=== PATIENT | male | born 1980 | race African-American/Black ===

== ENCOUNTER 2019-08-15 05:58 | Inpatient (IN) | payer MEDICARE, MEDICAID ==
[~2019-08-15] VITALS: Ht 188 cm; Wt 67.6 kg
[~2019-08-15 05:58] MED LIST: LAMI10SO PO; RALT400T PO; RANI150T2 PO; SULF1TAB24 PO; [UNRECOGNIZED DRUG - CODE] PO
--- NOTE | 2019-08-15 06:26 | PHYS DOC ---
Past Medical History Past Medical History: Anxiety, Asthma, Depression, GERD, HIV, Hypertension, Renal Disease, Other (CANDICE JALLOH DO) Past Surgical History: Cholecystectomy Additional Past Surgical Histo: GYNECOMASTIA SX (CANDICE JALLOH DO) Smoking: Cigarettes Alcohol Use: Rarely Drug Use: Other (CANDICE JALLOH DO) Adult General Chief Complaint Chief Complaint: SHORTNESS OF BREATH HPI HPI 39 year old male presents with history of shortness of breath which started this AM at 0400. Patient with history of ESRD on HD //Sat. Patient reports he last went to HD on Saturday and had appointment this AM at 0545. Patient reports his breathing became so difficulty that he ended up coming by EMS. Denies fever/chills. Denies trauma. EMS reported patient's O2 sat upon arrival was down to 90% on room air. Patient was placed on CPAP at 10 L which increased his O2 sat to 98%. Patient also received 1 inch of Nitropaste prior to arrival. (CANDICE JALLOH DO) Review of Systems Review of Systems Constitutional: Denies fever or chills Eyes: Denies redness or eye pain HENT: Denies nasal congestion or sore throat Respiratory: Reports shortness of breath Cardiovascular: Denies chest pain or palpitations GI: Denies abdominal pain, nausea, or vomiting : Denies dysuria or hematuria Musculoskeletal: Denies back pain or joint pain Integument: Denies rash or skin lesions Neurologic: Denies headache, focal weakness or sensory changes Complete systems were reviewed and found to be within normal limits, except as documented in this note. (CANDICE JALLOH DO) Current Medications Current Medications Current Medications Medications (Trade) Dose Ordered Sig/Kyleigh Start Time Stop Time Status Last Admin Dose Admin Albuterol Sulfate (Ventolin Neb Soln) 10 mg 1X ONCE 08/15/19 07:45 08/15/19 07:51 DC Ipratropium [place] (Atrovent) 1 mg 1X ONCE 08/15/19 07:45 08/15/19 07:51 DC Methylprednisolone Sodium Succinate (SOLU-Medrol 125MG VIAL) 125 mg 1X ONCE 08/15/19 07:45 08/15/19 07:51 DC 08/15/19 08:03 125 MG (CARMELINA DE LA PAZ DO) Allergies Allergies Allergies Coded Allergies Type Severity Reaction Last Updated Verified No Known Drug Allergies 09/29/13 No (CARMELINA DE LA PAZ ) Physical Exam Physical Exam Constitutional: Well developed, well nourished, non-toxic appearance HENT: Normocephalic, atraumatic, oropharynx moist Eyes: Conjunctiva normal, no discharge Neck: Normal range of motion, no tenderness, supple Cardiovascular: Heart rate normal, regular rhythm Lungs & Thorax: Bilateral breath equal, diminished at bases Abdomen: Soft, no tenderness Skin: Warm, dry, no erythema, no rash Extremities: No tenderness, ROM intact, no edema Neurologic: Alert and oriented X 3, no focal deficits noted Psychologic: Affect normal, judgement normal (CANDICE JALLOH DO) Current Patient Data Vital Signs Vital Signs Date Time Temp Pulse Resp B/P (MAP) Pulse Ox O2 Delivery O2 Flow Rate FiO2 08/15/19 06:30 96 22 171/113 (132) 95 BiPAP/CPAP 08/15/19 05:58 98.1 10.0 98.1 (CARMELINA DE LA PAZ ) Lab Values Laboratory Tests Test 08/15/19 06:18 08/15/19 06:20 White Blood Count 11.0 x10^3/uL (4.0-11.0) Red Blood Count 2.81 x10^6/uL (4.30-5.70) L Hemoglobin 8.4 g/dL (13.0-17.5) L Hematocrit 25.8 % (39.0-53.0) L Mean Corpuscular Volume 92 fL (79-100) Mean Corpuscular Hemoglobin 30 pg (25-35) Mean Corpuscular Hemoglobin Concent 33 g/dL (31-37) Red Cell Distribution Width 20.3 % (11.5-14.5) H Platelet Count 338 x10^3/uL (140-400) Neutrophils (%) (Auto) 71 % (31-73) Lymphocytes (%) (Auto) 14 % (24-48) L Monocytes (%) (Auto) 7 % (0-9) Eosinophils (%) (Auto) 8 % (0-3) H Basophils (%) (Auto) 1 % (0-3) Neutrophils # (Auto) 7.8 x10^3/uL (1.8-7.7) H Lymphocytes # (Auto) 1.5 x10^3/uL (1.0-4.8) Monocytes # (Auto) 0.8 x10^3/uL (0.0-1.1) Eosinophils # (Auto) 0.8 x10^3/uL (0.0-0.7) H Basophils # (Auto) 0.1 x10^3/uL (0.0-0.2) Platelet Estimate Pending Sodium Level 140 mmol/L (136-145) Potassium Level 4.7 mmol/L (3.5-5.1) Chloride Level 103 mmol/L (98-107) Carbon Dioxide Level 21 mmol/L (21-32) Anion Gap 16 (6-14) H Blood Urea Nitrogen 67 mg/dL (8-26) H Creatinine 15.7 mg/dL (0.7-1.3) H Estimated GFR (Cockcroft-Gault) 4.2 BUN/Creatinine Ratio 4 (6-20) L Glucose Level 90 mg/dL (70-99) Calcium Level 7.8 mg/dL (8.5-10.1) L Magnesium Level 2.2 mg/dL (1.8-2.4) Total Bilirubin 0.4 mg/dL (0.2-1.0) Aspartate Amino Transferase (AST) 21 U/L (15-37) Alanine Aminotransferase (ALT) 14 U/L (16-63) L Alkaline Phosphatase 70 U/L (46-116) Creatine Kinase 177 U/L (39-308) Creatine Kinase MB (Mass) 2.1 ng/mL (0.0-3.6) Creatine Kinase MB Relative Index 1.2 % (0-4) Troponin I Quantitative < 0.017 ng/mL (0.000-0.055) JE-Qaj-I-Type Natriuretic Peptide > 80450 pg/mL (0-124) H Total Protein 7.9 g/dL (6.4-8.2) Albumin 3.0 g/dL (3.4-5.0) L Albumin/Globulin Ratio 0.6 (1.0-1.7) L O2 Saturation 99 % (92-99) Arterial Blood pH 7.36 (7.35-7.45) Arterial Blood pCO2 at Patient Temp 36 mmHg (35-46) Arterial Blood pO2 at Patient Temp 254 mmHg (85-108) H Arterial Blood HCO3 20 mmol/L (21-28) L Arterial Blood Base Excess -5 mmol/L (-3-3) L Oxyhemoglobin 91.1 % Methemoglobin 6.7 % (0.0-1.9) *H Carbon Monoxide, Quantitative 1.3 % (0.0-1.9) FiO2 50 Laboratory Tests 08/15/19 06:18 Laboratory Tests 08/15/19 06:18 (CARMELINA DE LA PAZ DO) EKG EKG @0607 Sinus tachycardia at 101bpm, NO ST elevation, (CANDICE JALLOH DO) Radiology/Procedures Radiology/Procedures [] (CANDICE JALLOH DO) Course & Med Decision Making Course & Med Decision Making Pertinent Labs and Imaging studies reviewed. (See chart for details) Patient with past with a history of end-stage renal disease on hemodialysis presents with shortness of breath that started this morning. Patient's O2 sat down to 90% on room air which improved with CPAP utilization by EMS. Patient continued on BiPAP upon arrival to ED. Patient likely with increased fluid load with lack of dialysis. Chest x-ray pending. EKG stable. Labs obtained and pending. Sign out given to Dr. De La Paz for further evaluation and final disposition. Discussed current findings and plan with patient and family, who acknowledge understanding and agreement. (CANDICE JALLOH DO) Course & Med Decision Making Patient with acute respiratory failure with hypoxia secondary to end-stage renal disease with volume overload and missed dialysis. Patient will be admitted to the hospitalist service for inpatient dialysis. Dr. Jones carton forming machine tender for nephrology notified of consult. (CARMELINA DE LA PAZ DO) Dragon Disclaimer Dragon Disclaimer This electronic medical record was generated, in whole or in part, using a voice recognition dictation system. (CANDICE JALLOH DO) Departure Departure Impression: Primary Impression: Acute respiratory failure with hypoxia Additional Impressions: Volume overload state of heart End-stage renal disease needing dialysis Disposition: ADMITTED INPATIENT Condition: CRITICAL Referrals: PILAR RUSSO MD (PCP) Problem Qualifiers CANDICE JALLOH DO Aug 15, 2019 06:26 CARMELINA DE LA PAZ DO Aug 15, 2019 08:28
[2019-08-15 06:45] LABS: BASO # 0.1 x10^3/uL (0.0-0.2); BASO % 1 % (0-3); EOS # 0.8 x10^3/uL (0.0-0.7); EOS % 8 % (0-3); HEMATOCRIT 25.8 % (39.0-53.0); HEMOGLOBIN 8.4 g/dL (13.0-17.5); LYMPH # 1.5 x10^3/uL (1.0-4.8); LYMPH % 14 % (24-48); MEAN CORPUSCULAR HEMOGLOBIN 30 pg (25-35); MEAN CORPUSCULAR HGB CONC 33 g/dL (31-37); MEAN CORPUSCULAR VOLUME 92 fL (79-100); MONO # 0.8 x10^3/uL (0.0-1.1); MONO % 7 % (0-9); NEUT # 7.8 x10^3/uL (1.8-7.7); NEUT % 71 % (31-73); PLATELET COUNT 338 x10^3/uL (140-400); RED BLOOD COUNT 2.81 x10^6/uL (4.30-5.70); RED CELL DISTRIBUTION WIDTH 20.3 % (11.5-14.5)
[2019-08-15 06:48] LABS: CALCIUM 7.8 mg/dL (8.5-10.1); CREATININE 15.7 mg/dL (0.7-1.3); GFR 4.2; POTASSIUM 4.7 mmol/L (3.5-5.1)
[2019-08-15 06:56] LABS: ALBUMIN/GLOBULIN RATIO 0.6 (1.0-1.7); TOTAL BILIRUBIN 0.4 mg/dL (0.2-1.0); TOTAL PROTEIN 7.9 g/dL (6.4-8.2)
[2019-08-15 06:57] LABS: MAGNESIUM 2.2 mg/dL (1.8-2.4)
[2019-08-15 07:02] LABS: CREATINE KINASE 177 U/L (39-308)
--- NOTE | 2019-08-15 07:15 | RAD ---
PORTABLE CHEST 1V Clinical Indication: Dyspnea. Comparison: AP chest July 29, 2016 Findings: There is left chest hemodialysis catheter, tip at superior atriocaval junction. The cardiomediastinal silhouette is normal. There are bibasilar airspace opacities. Interstitial markings are upper limits of normal.. There is no pneumothorax. No significant pleural effusion is appreciated. No acute bone abnormality. IMPRESSION: Bibasilar airspace opacities may be atelectasis or edema or infiltrate. Electronically signed by: Montrell Patel MD (08/15/2019 7:12 AM) [facility]
[2019-08-15 07:31] LABS: BASE EXCESS COOX -5 mmol/L (-3-3); HCO3 COOX 20 mmol/L (21-28); OXYHEMOGLOBIN 91.1 %; PCO2 COOX 36 mmHg (35-46); PO2 COOX 254 mmHg (85-108); SAT O2 COOX 99 % (92-99)
[2019-08-15] MEDS ORDERED: IPRATROPIUM BROMIDE 0.5 MG/2.5 ML NEBU. NEB ONE (07:45)
[2019-08-15] MEDS ORDERED: ALBUTEROL SULFATE 2.5 MG/3 ML NEBU. CONT NEB ONE (07:45)
[2019-08-15] MEDS ORDERED: methylPREDNISolone SOD SUCC PF 125 MG/2 ML VIAL. IV ONE (07:45)
[2019-08-15 08:08] LABS: METHEMOGLOBIN 6.7 % (0.0-1.9)
--- NOTE | 2019-08-15 09:22 | PDOC1 ---
History and Physical Date of Admission Date of Admission DATE: 08/15/19 TIME: 09:21 Identification/Chief Complaint Chief Complaint Shortness of breath Source Source: Patient History of Present Illness History of Present Illness Mr. Bernardo is a 39-year-old M from the [facility] w/ PMHx Anxiety, Asthma, Depression, GERD, HIV, Hypertension, End Stage Renal Disease, gynecomastia who p/w shortness of breath which started this AM at 0400. Patient reports his breathing became so difficulty that he ended up coming by EMS. Denies fever/chills. Denies trauma. EMS reported patient's O2 sat upon arrival was down to 90% on room air. Patient was placed on CPAP at 10 L which increased his O2 sat to 98%. Patient also received 1 inch of Nitropaste prior to arrival due to elevated BP. He feels his asthma may be acting up due to the fact that his mom had cats in her house. He was on dialysis in the past and then his creatinine improved. He was able to stay off of dialysis for almost 5 years. About a year ago he had to restart dialysis after he had a pneumonia. He is known to have a history of HIV. He dialyzes at the [facility] in [facility]. He last went to HD on Saturday and had appointment this AM at 0545. Was supposed to have dialysis today at [facility], which was arranged by his caser. He thinks that has brought on his shortness of breath. CXR significant for fluid overload and notably his weight is approximately 6-7 kg above his estimated dry weight.He has had no recent sick contacts and tells me his most recent HIV viral load was undetectable and his CD4 count was greater than 400. He is, however, taking bactrim and azithromycin, notes he does not really know why, but he has been compliant with these and his anti-retrovirals. He notes his blood pressure has been elevated for months and that he has been losing weight so feels it is difficult to figure out his dry weight. BP 181/121.. Labs reveal BUN 67, Cr 15.7, Hb 8.4. His EKG showed sinus tachycardia. He was noted to be hypoxemic hypertensive and required BiPAP for maintaining his oxygenation. Emergent dialysis has been arranged for by nephrology, Dr. Jones. Past Medical History Cardiovascular: HTN Pulmonary: Asthma GI: No pertinent hx Heme/Onc: Anemia NOS Hepatobiliary: No pertinent hx Psych: Anxiety, Depression Rheumatologic: No pertinent hx Infectious disease: HIV ENT: No pertinent hx Renal/: Chronic renal failure Endocrine: No pertinent hx Dermatology: No pertinent hx Past Surgical History Past Surgical History: Cholecystectomy, Other (Gynecomastia reduction) Family History Family History: Hypertension Social History Smoke: <1 pack per day ALCOHOL: rare Drugs: None Current Problem List Problem List Problems Medical Problems: (1) Acute respiratory failure with hypoxia Status: Acute (2) End-stage renal disease needing dialysis Status: Acute (3) Shortness of breath Status: Acute (4) Volume overload state of heart Status: Acute Current Medications Current Medications Current Medications Methylprednisolone Sodium Succinate (SOLU-Medrol 125MG VIAL) 125 mg 1X ONCE IV Last administered on 08/15/19at 08:03; Start 08/15/19 at 07:45; Stop 08/15/19 at 07:51; Status DC Albuterol Sulfate (Ventolin Neb Soln) 10 mg 1X ONCE CONT NEB Last administered on 08/15/19at 08:23; Start 08/15/19 at 07:45; Stop 08/15/19 at 07:51; Status DC Ipratropium [place] (Atrovent) 1 mg 1X ONCE NEB Last administered on 08/15/19at 08:23; Start 08/15/19 at 07:45; Stop 08/15/19 at 07:51; Status DC Active Scripts Active Reported Ranitidine Hcl 150 Mg Tablet 150 Mg PO Isentress (Raltegravir Potassium) 400 Mg Tablet 400 Mg PO Zidovudine 100 Mg Capsule 100 Mg PO Bactrim Ds Tablet (Sulfamethoxazole/Trimethoprim) 1 Each Tablet 1 Each PO Epivir (Lamivudine) 10 Mg/1 Ml Solution 10 Mg PO Allergies Allergies: Coded Allergies: No Known Drug Allergies (Unverified , 09/29/13) ROS General: YES: Fatigue, Malaise; No: Chills, Night Sweats, Appetite, Other PSYCHOLOGICAL ROS: No: Anxiety, Behavioral Disorder, Concentration difficultie, Decreased libido, Depression, Disorientation, Hallucinations, Hostility, Irritablity, Memory difficulties, Mood Swings, Obsessive thoughts, Physical abuse, Sexual abuse, Sleep disturbances, Suicidal ideation, Other Eyes: No Blurry vision, No Decreased vision, No Double vision, No Dry eyes, No Excessive tearing, No Eye Pain, No Itchy Eyes, No Loss of vision, No Photophobia, No Scotomata, No Uses contacts, No Uses glasses, No Other HEENT: YES: Heacaches; No: Visual Changes, Hearing change, Nasal congestion, Nasal discharge, Oral lesions, Sinus pain, Sore Throat, Epistaxis, Sneezing, Snoring, Tinnitus, Vertigo, Vocal changes, Other ALLERGY AND IMMUNOLOGY: No: Hives, Insect Bite Sensitivity, Itchy/Watery Eyes, Nasal Congestion, Post Nasal Drip, Seasonal Allergies, Other Hematological and Lymphatic: No: Bleeding Problems, Blood Clots, Blood Transfusions, Brusing, Night Sweats, Pallor, Swollen Lymph Nodes, Other ENDOCRINE: No: Breast Changes, Galactorrhea, Hair Pattern Changes, Hot Flashes, Malaise/lethargy, Mood Swings, Palpitations, Polydipsia/polyuria, Skin Changes, Temperature Intolerance, Unexpected Weight Changes, Other Breast: No New/Changing Breast Lumps, No Nipple changes, No Nipple discharge, No Other Respiratory: YES: Cough, Shortness of breath, SOB with excertion, Wheezing; No: Hemoptysis, Orthopnea, Pleuritic Pain, Sputum Changes, Stridor, Tachypnea, Other Cardiovascular: No Chest Pain, No Palpitations, No Orthopnea, No Paroxysmal Noc. Dyspnea, No Edema, No Lt Headedness, No Other Gastrointestinal: Yes Nausea; No Vomiting, No Abdominal Pain, No Diarrhea, No Constipation, No Melena, No Hematochezia, No Other Genitourinary: No Dysuria, No Frequency, No Incontinence, No Hematuria, No Retention, No Discharge, No Urgency, No Pain, No Flank Pain, No Other, No , No , No , No , No , No , No Musculoskeletal: No Gait Disturbance, No Joint Pain, No Joint Stiffness, No Joint Swelling, No Muscle Pain, No Muscular Weakness, No Pain In:, No Swelling In:, No Other Neurological: No Behavorial Changes, No Bowel/Bladder ControlChng, No Confusion, No Dizziness, No Gait Disturbance, No Headaches, No Impaired Coord/balance, No Memory Loss, No Numbness/Tingling, No Seizures, No Speech P roblems, No Tremors, No Visual Changes, No Weakness, No Other Skin: No Dry Skin, No Eczema, No Hair Changes, No Lumps, No Mole Changes, No Mottling, No Nail Changes, No Pruritus, No Rash, No Skin Lesion Changes, No Other, No Acne Physical Exam General: Alert, Oriented X3, Cooperative, mild distress HEENT: Atraumatic, PERRLA, EOMI, Mucous membr. moist/pink Lungs: Other (Bilateral crackles and wheezes) Abdomen: Normal bowel sounds, Soft, No tenderness, No hepatosplenomegaly, No masses Rectal Exam: not examined Extremities: No clubbing, No cyanosis, No edema, Normal pulses, No tenderness/swelling Skin: No rashes, No breakdown, No significant lesion Neuro: Normal gait, Normal speech, Strength at 5/5 X4 ext, Normal tone, Sensation intact, Cranial nerves 3-12 NL, Reflexes 2+ Psych/Mental Status: Mental status NL, Mood NL Vitals Vitals Vital Signs Date Time Temp Pulse Resp B/P (MAP) Pulse Ox O2 Delivery O2 Flow Rate FiO2 08/15/19 09:00 104 19 171/115 (133) 90 08/15/19 08:30 Nasal Cannula 2.0 08/15/19 05:58 98.1 98.1 Labs Labs Laboratory Tests Test 08/15/19 06:18 08/15/19 06:20 White Blood Count 11.0 x10^3/uL (4.0-11.0) Red Blood Count 2.81 x10^6/uL (4.30-5.70) Hemoglobin 8.4 g/dL (13.0-17.5) Hematocrit 25.8 % (39.0-53.0) Mean Corpuscular Volume 92 fL (79-100) Mean Corpuscular Hemoglobin 30 pg (25-35) Mean Corpuscular Hemoglobin Concent 33 g/dL (31-37) Red Cell Distribution Width 20.3 % (11.5-14.5) Platelet Count 338 x10^3/uL (140-400) Neutrophils (%) (Auto) 71 % (31-73) Lymphocytes (%) (Auto) 14 % (24-48) Monocytes (%) (Auto) 7 % (0-9) Eosinophils (%) (Auto) 8 % (0-3) Basophils (%) (Auto) 1 % (0-3) Neutrophils # (Auto) 7.8 x10^3/uL (1.8-7.7) Lymphocytes # (Auto) 1.5 x10^3/uL (1.0-4.8) Monocytes # (Auto) 0.8 x10^3/uL (0.0-1.1) Eosinophils # (Auto) 0.8 x10^3/uL (0.0-0.7) Basophils # (Auto) 0.1 x10^3/uL (0.0-0.2) Sodium Level 140 mmol/L (136-145) Potassium Level 4.7 mmol/L (3.5-5.1) Chloride Level 103 mmol/L (98-107) Carbon Dioxide Level 21 mmol/L (21-32) Anion Gap 16 (6-14) Blood Urea Nitrogen 67 mg/dL (8-26) Creatinine 15.7 mg/dL (0.7-1.3) Estimated GFR (Cockcroft-Gault) 4.2 BUN/Creatinine Ratio 4 (6-20) Glucose Level 90 mg/dL (70-99) Calcium Level 7.8 mg/dL (8.5-10.1) Magnesium Level 2.2 mg/dL (1.8-2.4) Total Bilirubin 0.4 mg/dL (0.2-1.0) Aspartate Amino Transf (AST/SGOT) 21 U/L (15-37) Alanine Aminotransferase (ALT/SGPT) 14 U/L (16-63) Alkaline Phosphatase 70 U/L (46-116) Creatine Kinase 177 U/L (39-308) Creatine Kinase MB (Mass) 2.1 ng/mL (0.0-3.6) Creatine Kinase MB Relative Index 1.2 % (0-4) Troponin I Quantitative < 0.017 ng/mL (0.000-0.055) NL-Qfc-J-Type Natriuretic Peptide > 75753 pg/mL (0-124) Total Protein 7.9 g/dL (6.4-8.2) Albumin 3.0 g/dL (3.4-5.0) Albumin/Globulin Ratio 0.6 (1.0-1.7) O2 Saturation 99 % (92-99) Arterial Blood pH 7.36 (7.35-7.45) Arterial Blood pCO2 at Patient Temp 36 mmHg (35-46) Arterial Blood pO2 at Patient Temp 254 mmHg (85-108) Arterial Blood HCO3 20 mmol/L (21-28) Arterial Blood Base Excess -5 mmol/L (-3-3) Oxyhemoglobin 91.1 % Methemoglobin 6.7 % (0.0-1.9) Carbon Monoxide, Quantitative 1.3 % (0.0-1.9) FiO2 50 Laboratory Tests Test 08/15/19 06:18 08/15/19 06:20 White Blood Count 11.0 x10^3/uL (4.0-11.0) Red Blood Count 2.81 x10^6/uL (4.30-5.70) Hemoglobin 8.4 g/dL (13.0-17.5) Hematocrit 25.8 % (39.0-53.0) Mean Corpuscular Volume 92 fL (79-100) Mean Corpuscular Hemoglobin 30 pg (25-35) Mean Corpuscular Hemoglobin Concent 33 g/dL (31-37) Red Cell Distribution Width 20.3 % (11.5-14.5) Platelet Count 338 x10^3/uL (140-400) Neutrophils (%) (Auto) 71 % (31-73) Lymphocytes (%) (Auto) 14 % (24-48) Monocytes (%) (Auto) 7 % (0-9) Eosinophils (%) (Auto) 8 % (0-3) Basophils (%) (Auto) 1 % (0-3) Neutrophils # (Auto) 7.8 x10^3/uL (1.8-7.7) Lymphocytes # (Auto) 1.5 x10^3/uL (1.0-4.8) Monocytes # (Auto) 0.8 x10^3/uL (0.0-1.1) Eosinophils # (Auto) 0.8 x10^3/uL (0.0-0.7) Basophils # (Auto) 0.1 x10^3/uL (0.0-0.2) Sodium Level 140 mmol/L (136-145) Potassium Level 4.7 mmol/L (3.5-5.1) Chloride Level 103 mmol/L (98-107) Carbon Dioxide Level 21 mmol/L (21-32) Anion Gap 16 (6-14) Blood Urea Nitrogen 67 mg/dL (8-26) Creatinine 15.7 mg/dL (0.7-1.3) Estimated GFR (Cockcroft-Gault) 4.2 BUN/Creatinine Ratio 4 (6-20) Glucose Level 90 mg/dL (70-99) Calcium Level 7.8 mg/dL (8.5-10.1) Magnesium Level 2.2 mg/dL (1.8-2.4) Total Bilirubin 0.4 mg/dL (0.2-1.0) Aspartate Amino Transf (AST/SGOT) 21 U/L (15-37) Alanine Aminotransferase (ALT/SGPT) 14 U/L (16-63) Alkaline Phosphatase 70 U/L (46-116) Creatine Kinase 177 U/L (39-308) Creatine Kinase MB (Mass) 2.1 ng/mL (0.0-3.6) Creatine Kinase MB Relative Index 1.2 % (0-4) Troponin I Quantitative < 0.017 ng/mL (0.000-0.055) VO-Ltr-Y-Type Natriuretic Peptide > 99182 pg/mL (0-124) Total Protein 7.9 g/dL (6.4-8.2) Albumin 3.0 g/dL (3.4-5.0) Albumin/Globulin Ratio 0.6 (1.0-1.7) O2 Saturation 99 % (92-99) Arterial Blood pH 7.36 (7.35-7.45) Arterial Blood pCO2 at Patient Temp 36 mmHg (35-46) Arterial Blood pO2 at Patient Temp 254 mmHg (85-108) Arterial Blood HCO3 20 mmol/L (21-28) Arterial Blood Base Excess -5 mmol/L (-3-3) Oxyhemoglobin 91.1 % Methemoglobin 6.7 % (0.0-1.9) Carbon Monoxide, Quantitative 1.3 % (0.0-1.9) FiO2 50 Images Images There is left chest hemodialysis catheter, tip at superior atriocaval junction. The cardiomediastinal silhouette is normal. There are bibasilar airspace opacities. Interstitial markings are upper limits of normal.. There is no pneumothorax. No significant pleural effusion is appreciated. No acute bone abnormality. IMPRESSION: Bibasilar airspace opacities may be atelectasis or edema or infiltrate. VTE Prophylaxis Ordered VTE Prophylaxis Devices: No VTE Pharmacological Prophylaxi: Yes Assessment/Plan Assessment/Plan A/P: Acute hypoxic respiratory failure - initially requiring bipap, likely multifactorial with asthma and fluid overload with flash pulmonary edema. Nebs and urgent dialysis Hypertensive emergency - with flash pulm edema. NTG helping, restart home amlodipine. Prn labetalol IV ESRD on HD - he is quite overdue for dialysis, needs emergent therapy. Neph rology consulted Anxiety with Depression - cont meds GERD - PPI HIV - compliant with meds. Unclear why he is on bactrim and azithromycin, will continue if nephrology is ok with bactrim Hypertension - may need med adjustment after a few dialysis sessions Asthma - will cont inhalers FEN - renal diet PPX - heparin FULL CODE Inpatient CVICU for HTN emergency. CC time 43 minutes ABRAHAM STOVER MD Aug 15, 2019 09:22
[2019-08-15 09:36] VITALS: BP 165/109
[2019-08-15] MEDS ORDERED: AMLO5TAB10 PO (09:42)
[2019-08-15] MEDS ORDERED: DOLU50TA PO (09:42)
[2019-08-15] MEDS ORDERED: DARU1TAB PO (09:42)
[2019-08-15] MEDS ORDERED: FURO-68 PO (09:49)
[2019-08-15] MEDS ORDERED: DAPS100T PO (09:49)
[2019-08-15] MEDS ORDERED: HYDR50CA2 PO (09:49)
[2019-08-15] MEDS ORDERED: TRAZ-86 PO (09:49)
[2019-08-15] MEDS ORDERED: ESCITALOPRAM OX10 MG PO (09:49)
[2019-08-15] MEDS ORDERED: AZIT500T PO (09:49)
[2019-08-15] MEDS ORDERED: HYDR25CA75 PO (09:49)
--- NOTE | 2019-08-15 10:01 | PDOC2 ---
CONSULT Date of Consult Date of Consult DATE: 08/15/19 TIME: 10:00 Reason for Consult Reason for Consult: ESRD, fluid overload, missed dialysis Referring Physician Referring Physician: Dr. De La Paz called me from the ER Identification/Chief Complaint Chief Complaint Shortness of breath Source Source: Chart review, Patient History of Present Illness Reason for Visit: Mr. Bernardo is a pleasant 39-year-old Afro-[place] gentleman was from the [facility]. He was on dialysis in the past and then his creatinine improved. He was able to stay off of dialysis for almost 5 years. About a year ago he had to restart dialysis after he had a pneumonia. He is known to have a history of HIV. He dialyzes at the [facility] in [place] on a Saturday basis. His last dialysis was on Saturday prior to him coming here for weekend. His director of extension work is Dr. Stacy Wynn. . He tells me that his healthcare social worker had sent him up for dialysis today at [facility], but he was unable to make it. He tells me that he has a history of asthma and his mom had c ats in her house. He thinks that has brought on his shortness of breath. However in discussion with Dr. De La Paz it appears that his chest x-rays significant for fluid overload. Given his current weight is approximately 6-7 kg above his estimated dry weight. He denies any fevers chills nausea vomiting. He does feel he has some phlegm in the back of his throat. Patient presented the ER with increasing shortness of breath and I was called by Dr. De La Paz for emergent arrangements of dialysis. He was noted to be hypoxemic hypertensive and required BiPAP for maintaining his oxygenation. Emergent dialysis has been arranged for Past Medical History Past Medical History Anxiety, Asthma, Depression, GERD, HIV, Hypertension, Renal Disease, Other Infectious disease: HIV Renal/: Chronic renal failure Past Surgical History Past Surgical History Cholecystectomy; GYNECOMASTIA SX Social History <1 pack per day ALCOHOL: occassional Lives: Friends Current Problem List Problem List Problems Medical Problems: (1) Acute respiratory failure with hypoxia Status: Acute (2) End-stage renal disease needing dialysis Status: Acute (3) Shortness of breath Status: Acute (4) Volume overload state of heart Status: Acute Current Medications Current Medications Current Medications Methylprednisolone Sodium Succinate (SOLU-Medrol 125MG VIAL) 125 mg 1X ONCE IV Last administered on 08/15/19at 08:03; Start 08/15/19 at 07:45; Stop 08/15/19 at 07:51; Status DC Albuterol Sulfate (Ventolin Neb Soln) 10 mg 1X ONCE CONT NEB Last administered on 08/15/19at 08:23; Start 08/15/19 at 07:45; Stop 08/15/19 at 07:51; Status DC Ipratropium [place] (Atrovent) 1 mg 1X ONCE NEB Last administered on at 08:23; Start 08/15/19 at 07:45; Stop 08/15/19 at 07:51; Status DC Active Scripts Active Reported Escitalopram Oxalate 10 Mg Tablet 10 Mg PO DAILY Dapsone 100 Mg Tablet 100 Mg PO DAILY Zithromax (Azithromycin) 500 Mg Tablet 600 Mg PO BID Hydroxyzine Pamoate 25 Mg Capsule 25 Mg PO Q6HRS PRN Hydroxyzine Pamoate 50 Mg Capsule 25 Mg PO Q6HRS Lasix (Furosemide) 40 Mg Tablet 40 Mg PO BID Trazodone Hcl 100 Mg Tablet 100 Mg PO HS Amlodipine Besylate 5 Mg Tablet 5 Mg PO DAILY Tivicay (Dolutegravir Sodium) 50 Mg Tablet 1 Tab PO DAILY 30 Days Prezcobix 800 mg-150 mg Tablet (Darunavir/Cobicistat) 1 Each Tablet 1 Tab PO DAILY 30 Days Ranitidine Hcl 150 Mg Tablet 150 Mg PO Bactrim Ds Tablet (Sulfamethoxazole/Trimethoprim) 1 Each Tablet 1 Each PO Allergies Allergies: Coded Allergies: No Known Drug Allergies (Unverified , 09/29/13) Physical Exam Physical Exam General Appearance: Awake Alert Oriented x 3 In min resp Distress Eyes: VIsion Unchanged Conjunctiva Normal EN: No EN Drainage Mucous Memb. moist Neck: no JVD no JVP Supple no Thyromegaly CVS: S1 S2 soft Murmur No Gallop No Rub no Edema Resp: rare Rales no Rhonchi no Acc. Muscle use GI: BS +ve NO Bruit Non Tender Non Distended : no CVA tenderness; no Suprapubic Tenderness SKIN: no Rashes Breast Exam deferred Mu.Sk: Adequate ROM no Muscle Atrophy Heme: Unable to palpate Obvious LAD no Splenomegaly NEURO: Good Strength and Tone Cranial Nerves II - XII grossly intact Psych: not Depressed no Active hallucination Vital Signs Vital Signs Date Time Temp Pulse Resp B/P (MAP) Pulse Ox O2 Delivery O2 Flow Rate FiO2 08/15/19 09:36 97.9 94 18 165/109 (127) 97.9 08/15/19 09:00 90 08/15/19 08:30 Nasal Cannula 2.0 Assessment & Plan ESRD.urgent/emergent dialysis as ordered. Shortness of breath: Suspect related to fluid overload. Reevaluate once ultrafiltered on dialysis. Hypervolemia, fluid overload: Suspect due to dietary indiscretion especially over the weekend and missed dialysis treatment. Patient tells me he is approximately 6-7 kg over his dry weight. He claims he will not be able to take all of it off in one sitting and hence requested to be doing dialysis again tomorrow morning. Anemia: Epogen as ordered Transfuse with next HD as needed. HTN: Current BP meds reviewed. See orders for changes. Bone & Mineral: Follow phosphorus levels and alter binder regimen as needed. Hypoxemia at presentation: Suspect due to hypervolemia: If this does not resolve with ultrafiltration E May need further pulmonary evaluation in the setting of previous history of HIV, and/or cardiology evaluation Discussed Plan of Care and prognosis etc. at length with patient. Will reevaluate on dialysis Labs Labs Laboratory Tests Test 08/15/19 06:18 08/15/19 06:20 White Blood Count 11.0 x10^3/uL (4.0-11.0) Red Blood Count 2.81 x10^6/uL (4.30-5.70) Hemoglobin 8.4 g/dL (13.0-17.5) Hematocrit 25.8 % (39.0-53.0) Mean Corpuscular Volume 92 fL (79-100) Mean Corpuscular Hemoglobin 30 pg (25-35) Mean Corpuscular Hemoglobin Concent 33 g/dL (31-37) Red Cell Distribution Width 20.3 % (11.5-14.5) Platelet Count 338 x10^3/uL (140-400) Neutrophils (%) (Auto) 71 % (31-73) Lymphocytes (%) (Auto) 14 % (24-48) Monocytes (%) (Auto) 7 % (0-9) Eosinophils (%) (Auto) 8 % (0-3) Basophils (%) (Auto) 1 % (0-3) Neutrophils # (Auto) 7.8 x10^3/uL (1.8-7.7) Lymphocytes # (Auto) 1.5 x10^3/uL (1.0-4.8) Monocytes # (Auto) 0.8 x10^3/uL (0.0-1.1) Eosinophils # (Auto) 0.8 x10^3/uL (0.0-0.7) Basophils # (Auto) 0.1 x10^3/uL (0.0-0.2) Sodium Level 140 mmol/L (136-145) Potassium Level 4.7 mmol/L (3.5-5.1) Chloride Level 103 mmol/L (98-107) Carbon Dioxide Level 21 mmol/L (21-32) Anion Gap 16 (6-14) Blood Urea Nitrogen 67 mg/dL (8-26) Creatinine 15.7 mg/dL (0.7-1.3) Estimated GFR (Cockcroft-Gault) 4.2 BUN/Creatinine Ratio 4 (6-20) Glucose Level 90 mg/dL (70-99) Calcium Level 7.8 mg/dL (8.5-10.1) Magnesium Level 2.2 mg/dL (1.8-2.4) Total Bilirubin 0.4 mg/dL (0.2-1.0) Aspartate Amino Transf (AST/SGOT) 21 U/L (15-37) Alanine Aminotransferase (ALT/SGPT) 14 U/L (16-63) Alkaline Phosphatase 70 U/L (46-116) Creatine Kinase 177 U/L (39-308) Creatine Kinase MB (Mass) 2.1 ng/mL (0.0-3.6) Creatine Kinase MB Relative Index 1.2 % (0-4) Troponin I Quantitative < 0.017 ng/mL (0.000-0.055) VX-Qlp-D-Type Natriuretic Peptide > 15360 pg/mL (0-124) Total Protein 7.9 g/dL (6.4-8.2) Albumin 3.0 g/dL (3.4-5.0) Albumin/Globulin Ratio 0.6 (1.0-1.7) O2 Saturation 99 % (92-99) Arterial Blood pH 7.36 (7.35-7.45) Arterial Blood pCO2 at Patient Temp 36 mmHg (35-46) Arterial Blood pO2 at Patient Temp 254 mmHg (85-108) Arterial Blood HCO3 20 mmol/L (21-28) Arterial Blood Base Excess -5 mmol/L (-3-3) Oxyhemoglobin 91.1 % Methemoglobin 6.7 % (0.0-1.9) Carbon Monoxide, Quantitative 1.3 % (0.0-1.9) FiO2 50 Laboratory Tests Test 08/15/19 06:18 08/15/19 06:20 White Blood Count 11.0 x10^3/uL (4.0-11.0) Red Blood Count 2.81 x10^6/uL (4.30-5.70) Hemoglobin 8.4 g/dL (13.0-17.5) Hematocrit 25.8 % (39.0-53.0) Mean Corpuscular Volume 92 fL (79-100) Mean Corpuscular Hemoglobin 30 pg (25-35) Mean Corpuscular Hemoglobin Concent 33 g/dL (31-37) Red Cell Distribution Width 20.3 % (11.5-14.5) Platelet Count 338 x10^3/uL (140-400) Neutrophils (%) (Auto) 71 % (31-73) Lymphocytes (%) (Auto) 14 % (24-48) Monocytes (%) (Auto) 7 % (0-9) Eosinophils (%) (Auto) 8 % (0-3) Basophils (%) (Auto) 1 % (0-3) Neutrophils # (Auto) 7.8 x10^3/uL (1.8-7.7) Lymphocytes # (Auto) 1.5 x10^3/uL (1.0-4.8) Monocytes # (Auto) 0.8 x10^3/uL (0.0-1.1) Eosinophils # (Auto) 0.8 x10^3/uL (0.0-0.7) Basophils # (Auto) 0.1 x10^3/uL (0.0-0.2) Sodium Level 140 mmol/L (136-145) Potassium Level 4.7 mmol/L (3.5-5.1) Chloride Level 103 mmol/L (98-107) Carbon Dioxide Level 21 mmol/L (21-32) Anion Gap 16 (6-14) Blood Urea Nitrogen 67 mg/dL (8-26) Creatinine 15.7 mg/dL (0.7-1.3) Estimated GFR (Cockcroft-Gault) 4.2 BUN/Creatinine Ratio 4 (6-20) Glucose Level 90 mg/dL (70-99) Calcium Level 7.8 mg/dL (8.5-10.1) Magnesium Level 2.2 mg/dL (1.8-2.4) Total Bilirubin 0.4 mg/dL (0.2-1.0) Aspartate Amino Transf (AST/SGOT) 21 U/L (15-37) Alanine Aminotransferase (ALT/SGPT) 14 U/L (16-63) Alkaline Phosphatase 70 U/L (46-116) Creatine Kinase 177 U/L (39-308) Creatine Kinase MB (Mass) 2.1 ng/mL (0.0-3.6) Creatine Kinase MB Relative Index 1.2 % (0-4) Troponin I Quantitative < 0.017 ng/mL (0.000-0.055) SH-Otg-F-Type Natriuretic Peptide > 86360 pg/mL (0-124) Total Protein 7.9 g/dL (6.4-8.2) Albumin 3.0 g/dL (3.4-5.0) Albumin/Globulin Ratio 0.6 (1.0-1.7) O2 Saturation 99 % (92-99) Arterial Blood pH 7.36 (7.35-7.45) Arterial Blood pCO2 at Patient Temp 36 mmHg (35-46) Arterial Blood pO2 at Patient Temp 254 mmHg (85-108) Arterial Blood HCO3 20 mmol/L (21-28) Arterial Blood Base Excess -5 mmol/L (-3-3) Oxyhemoglobin 91.1 % Methemoglobin 6.7 % (0.0-1.9) Carbon Monoxide, Quantitative 1.3 % (0.0-1.9) FiO2 50 Review All relevant outside records, renal labs, imaging studies, telemetry/EKG's were reviewed. Images Images Findings: There is left chest hemodialysis catheter, tip at superior atriocaval junction. The cardiomediastinal silhouette is normal. There are bibasilar airspace opacities. Interstitial markings are upper limits of normal.. There is no pneumothorax. No significant pleural effusion is appreciated. No acute bone abnormality. IMPRESSION: Bibasilar airspace opacities may be atelectasis or edema or infiltrate. PILY HARVEY MD Aug 15, 2019 10:01
[2019-08-15] MEDS ORDERED: IV NORMAL SALINE 1000ML BAG 1,000 ML IV PRN ×2 (10:07)
[2019-08-15] MEDS ORDERED: ACETAMINOPHEN 500 MG TABLET PO PRN (10:15)
[2019-08-15] MEDS ORDERED: DIALYSIS PATIENT. MC PRN (10:15)
[2019-08-15] MEDS ORDERED: diphenhydrAMINE 50 MG/ML VIAL IV PRN ×2 (10:15)
[2019-08-15] MEDS ORDERED: ALBUMIN HUMAN 25% 200 ML IV PRN (10:15)
--- NOTE | 2019-08-15 10:34 | EKG ---
[facility] [address] [place] [address] Test Date: 2019-08-15 Test Time: 06:07:36 Pat Name: LEIA FUENTES Department: Room: Gender: M [employer]vil Worker: : 1980 Requested By: CANDICE JALLOH Order Number: [id number] Reading MD: Measurements Intervals [place] Rate: 101 P: 57 WA: 128 QRS: 45 QRSD: 74 T: 83 QT: 368 QTc: 478 Interpretive Statements SINUS TACHYCARDIA NO SPECIFIC ECG ABNORMALITIES RI6.01 No previous ECG available for comparison
[2019-08-15 10:53] LABS: ANISOCYTOSIS PRESENT; PLT ESTIMATE ADEQUATE (ADEQUATE)
--- NOTE | 2019-08-15 10:53 | PDOC ---
Dialysis Progress Note Dialysis Note Dialysis Note Seen on Hemodialysis, tolerating treatment Well so far Vitals on Hemodialysis: 186/116 102 afeb General Appearance: Awake: Alert Oriented x 3 Neck: No JVD or JVP Chest: CTA Clive - no wheezing currently Heart: S1 S2 - tachy Abdomen - Soft NTND Extremities - No Edema ESRD: Dialysis as below F 180 NR 3.0 Hrs 3 K 2.5 Ca 140 Na 35 HC03 Qb 350 + Qd 500+ Heparin 0 Units Uf 3-4 Kgs or to dry weight as tolerated May give 25-50 gms of 25% Albumin if needed to maintain Hemodynamic stability Treatment plan reviewed and discussed with fire dispatcher Vitals Vital Signs Vital Signs Date Time Temp Pulse Resp B/P (MAP) Pulse Ox O2 Delivery O2 Flow Rate FiO2 08/15/19 09:36 97.9 94 18 165/109 (127) 97.9 08/15/19 09:00 90 08/15/19 08:30 Nasal Cannula 2.0 Labs Last Labs Laboratory Tests Test 08/15/19 06:18 08/15/19 06:20 White Blood Count 11.0 x10^3/uL (4.0-11.0) Red Blood Count 2.81 x10^6/uL (4.30-5.70) Hemoglobin 8.4 g/dL (13.0-17.5) Hematocrit 25.8 % (39.0-53.0) Mean Corpuscular Volume 92 fL (79-100) Mean Corpuscular Hemoglobin 30 pg (25-35) Mean Corpuscular Hemoglobin Concent 33 g/dL (31-37) Red Cell Distribution Width 20.3 % (11.5-14.5) Platelet Count 338 x10^3/uL (140-400) Neutrophils (%) (Auto) 71 % (31-73) Lymphocytes (%) (Auto) 14 % (24-48) Monocytes (%) (Auto) 7 % (0-9) Eosinophils (%) (Auto) 8 % (0-3) Basophils (%) (Auto) 1 % (0-3) Neutrophils # (Auto) 7.8 x10^3/uL (1.8-7.7) Lymphocytes # (Auto) 1.5 x10^3/uL (1.0-4.8) Monocytes # (Auto) 0.8 x10^3/uL (0.0-1.1) Eosinophils # (Auto) 0.8 x10^3/uL (0.0-0.7) Basophils # (Auto) 0.1 x10^3/uL (0.0-0.2) Sodium Level 140 mmol/L (136-145) Potassium Level 4.7 mmol/L (3.5-5.1) Chloride Level 103 mmol/L (98-107) Carbon Dioxide Level 21 mmol/L (21-32) Anion Gap 16 (6-14) Blood Urea Nitrogen 67 mg/dL (8-26) Creatinine 15.7 mg/dL (0.7-1.3) Estimated GFR (Cockcroft-Gault) 4.2 BUN/Creatinine Ratio 4 (6-20) Glucose Level 90 mg/dL (70-99) Calcium Level 7.8 mg/dL (8.5-10.1) Magnesium Level 2.2 mg/dL (1.8-2.4) Total Bilirubin 0.4 mg/dL (0.2-1.0) Aspartate Amino Transf (AST/SGOT) 21 U/L (15-37) Alanine Aminotransferase (ALT/SGPT) 14 U/L (16-63) Alkaline Phosphatase 70 U/L (46-116) Creatine Kinase 177 U/L (39-308) Creatine Kinase MB (Mass) 2.1 ng/mL (0.0-3.6) Creatine Kinase MB Relative Index 1.2 % (0-4) Troponin I Quantitative < 0.017 ng/mL (0.000-0.055) FX-Uxn-X-Type Natriuretic Peptide > 01654 pg/mL (0-124) Total Protein 7.9 g/dL (6.4-8.2) Albumin 3.0 g/dL (3.4-5.0) Albumin/Globulin Ratio 0.6 (1.0-1.7) O2 Saturation 99 % (92-99) Arterial Blood pH 7.36 (7.35-7.45) Arterial Blood pCO2 at Patient Temp 36 mmHg (35-46) Arterial Blood pO2 at Patient Temp 254 mmHg (85-108) Arterial Blood HCO3 20 mmol/L (21-28) Arterial Blood Base Excess -5 mmol/L (-3-3) Oxyhemoglobin 91.1 % Methemoglobin 6.7 % (0.0-1.9) Carbon Monoxide, Quantitative 1.3 % (0.0-1.9) FiO2 50 Laboratory Tests Test 08/15/19 06:18 08/15/19 06:20 White Blood Count 11.0 x10^3/uL (4.0-11.0) Red Blood Count 2.81 x10^6/uL (4.30-5.70) Hemoglobin 8.4 g/dL (13.0-17.5) Hematocrit 25.8 % (39.0-53.0) Mean Corpuscular Volume 92 fL (79-100) Mean Corpuscular Hemoglobin 30 pg (25-35) Mean Corpuscular Hemoglobin Concent 33 g/dL (31-37) Red Cell Distribution Width 20.3 % (11.5-14.5) Platelet Count 338 x10^3/uL (140-400) Neutrophils (%) (Auto) 71 % (31-73) Lymphocytes (%) (Auto) 14 % (24-48) Monocytes (%) (Auto) 7 % (0-9) Eosinophils (%) (Auto) 8 % (0-3) Basophils (%) (Auto) 1 % (0-3) Neutrophils # (Auto) 7.8 x10^3/uL (1.8-7.7) Lymphocytes # (Auto) 1.5 x10^3/uL (1.0-4.8) Monocytes # (Auto) 0.8 x10^3/uL (0.0-1.1) Eosinophils # (Auto) 0.8 x10^3/uL (0.0-0.7) Basophils # (Auto) 0.1 x10^3/uL (0.0-0.2) Sodium Level 140 mmol/L (136-145) Potassium Level 4.7 mmol/L (3.5-5.1) Chloride Level 103 mmol/L (98-107) Carbon Dioxide Level 21 mmol/L (21-32) Anion Gap 16 (6-14) Blood Urea Nitrogen 67 mg/dL (8-26) Creatinine 15.7 mg/dL (0.7-1.3) Estimated GFR (Cockcroft-Gault) 4.2 BUN/Creatinine Ratio 4 (6-20) Glucose Level 90 mg/dL (70-99) Calcium Level 7.8 mg/dL (8.5-10.1) Magnesium Level 2.2 mg/dL (1.8-2.4) Total Bilirubin 0.4 mg/dL (0.2-1.0) Aspartate Amino Transf (AST/SGOT) 21 U/L (15-37) Alanine Aminotransferase (ALT/SGPT) 14 U/L (16-63) Alkaline Phosphatase 70 U/L (46-116) Creatine Kinase 177 U/L (39-308) Creatine Kinase MB (Mass) 2.1 ng/mL (0.0-3.6) Creatine Kinase MB Relative Index 1.2 % (0-4) Troponin I Quantitative < 0.017 ng/mL (0.000-0.055) UH-Iej-D-Type Natriuretic Peptide > 96581 pg/mL (0-124) Total Protein 7.9 g/dL (6.4-8.2) Albumin 3.0 g/dL (3.4-5.0) Albumin/Globulin Ratio 0.6 (1.0-1.7) O2 Saturation 99 % (92-99) Arterial Blood pH 7.36 (7.35-7.45) Arterial Blood pCO2 at Patient Temp 36 mmHg (35-46) Arterial Blood pO2 at Patient Temp 254 mmHg (85-108) Arterial Blood HCO3 20 mmol/L (21-28) Arterial Blood Base Excess -5 mmol/L (-3-3) Oxyhemoglobin 91.1 % Methemoglobin 6.7 % (0.0-1.9) Carbon Monoxide, Quantitative 1.3 % (0.0-1.9) FiO2 50 Assessment Assessment Problems Medical Problems: (1) Acute respiratory failure with hypoxia Status: Acute (2) End-stage renal disease needing dialysis Status: Acute (3) Shortness of breath Status: Acute (4) Volume overload state of heart Status: Acute Plan Plan of Care Problems Medical Problems: (1) Acute respiratory failure with hypoxia Status: Acute (2) End-stage renal disease needing dialysis Status: Acute (3) Shortness of breath Status: Acute (4) Volume overload state of heart Status: Acute PILY HARVEY MD Aug 15, 2019 10:53
[2019-08-15] MEDS ORDERED: hydrOXYzine 25 MG TABLET PO PRN (12:15)
[2019-08-15] MEDS: DAPSONE 100 MG TABLET PO SCH (14:02)
[2019-08-15] MEDS: amLODIPine BESYLATE 5 MG TABLET PO SCH (14:03)
[2019-08-15] MEDS: CITALOPRAM 20 MG TABLET. PO SCH (14:03)
[2019-08-15] MEDS: DOLUTEGRAVIR SODIUM 50 MG PO SCH (14:33)
[2019-08-15] MEDS ORDERED: LABETALOL 20 MG/4 ML DISP.SYRIN. IVP PRN (14:45)
[2019-08-15 14:52] VITALS: BP 190/115
[2019-08-15 19:30] VITALS: BP 157/100
[2019-08-15] MEDS ORDERED: traZODone 100 MG TABLET. PO SCH (21:00)
[2019-08-15 23:34] VITALS: BP 150/97
[2019-08-16 03:40] VITALS: BP 148/100
[2019-08-16 07:00] VITALS: BP 143/89
[2019-08-16] MEDS ORDERED: IV NORMAL SALINE 1000ML BAG 1,000 ML IV PRN ×2 (08:26)
[2019-08-16] MEDS ORDERED: diphenhydrAMINE 50 MG/ML VIAL IV PRN ×2 (08:30)
[2019-08-16] MEDS ORDERED: ACETAMINOPHEN 500 MG TABLET PO PRN (08:30)
[2019-08-16] MEDS ORDERED: DIALYSIS PATIENT. MC PRN (08:30)
--- NOTE | 2019-08-16 09:06 | PDOC ---
Dialysis Progress Note Dialysis Note Dialysis Note Seen on Hemodialysis, tolerating treatment Well so far Vitals on Hemodialysis: 193/107 98 afeb General Appearance: Awake: Alert Oriented x 3 Neck: No JVD or JVP Chest: CTA Clive - no wheezing currently Heart: S1 S2 - tachy Abdomen - Soft NTND Extremities - No Edema ESRD: Dialysis as below F 180 NR 3.0 Hrs 3 K 2.5 Ca 140 Na 35 HC03 Qb 350 + Qd 500+ Heparin 0 Units Uf 2.0 Kgs or to dry weight as tolerated May give 25-50 gms of 25% Albumin if needed to maintain Hemodynamic stability Treatment plan reviewed and discussed with information technology teacher Vitals Vital Signs Vital Signs Date Time Temp Pulse Resp B/P (MAP) Pulse Ox O2 Delivery O2 Flow Rate FiO2 08/16/19 03:40 98.1 82 21 148/100 (116) 90 Room Air 98.1 08/15/19 20:00 2.0 Labs Last Labs Laboratory Tests Test 08/15/19 06:18 08/15/19 06:20 White Blood Count 11.0 x10^3/uL (4.0-11.0) Red Blood Count 2.81 x10^6/uL (4.30-5.70) Hemoglobin 8.4 g/dL (13.0-17.5) Hematocrit 25.8 % (39.0-53.0) Mean Corpuscular Volume 92 fL (79-100) Mean Corpuscular Hemoglobin 30 pg (25-35) Mean Corpuscular Hemoglobin Concent 33 g/dL (31-37) Red Cell Distribution Width 20.3 % (11.5-14.5) Platelet Count 338 x10^3/uL (140-400) Neutrophils (%) (Auto) 71 % (31-73) Lymphocytes (%) (Auto) 14 % (24-48) Monocytes (%) (Auto) 7 % (0-9) Eosinophils (%) (Auto) 8 % (0-3) Basophils (%) (Auto) 1 % (0-3) Neutrophils # (Auto) 7.8 x10^3/uL (1.8-7.7) Lymphocytes # (Auto) 1.5 x10^3/uL (1.0-4.8) Monocytes # (Auto) 0.8 x10^3/uL (0.0-1.1) Eosinophils # (Auto) 0.8 x10^3/uL (0.0-0.7) Basophils # (Auto) 0.1 x10^3/uL (0.0-0.2) Platelet Estimate Adequate (ADEQUATE) Anisocytosis Present Sodium Level 140 mmol/L (136-145) Potassium Level 4.7 mmol/L (3.5-5.1) Chloride Level 103 mmol/L (98-107) Carbon Dioxide Level 21 mmol/L (21-32) Anion Gap 16 (6-14) Blood Urea Nitrogen 67 mg/dL (8-26) Creatinine 15.7 mg/dL (0.7-1.3) Estimated GFR (Cockcroft-Gault) 4.2 BUN/Creatinine Ratio 4 (6-20) Glucose Level 90 mg/dL (70-99) Calcium Level 7.8 mg/dL (8.5-10.1) Magnesium Level 2.2 mg/dL (1.8-2.4) Total Bilirubin 0.4 mg/dL (0.2-1.0) Aspartate Amino Transf (AST/SGOT) 21 U/L (15-37) Alanine Aminotransferase (ALT/SGPT) 14 U/L (16-63) Alkaline Phosphatase 70 U/L (46-116) Creatine Kinase 177 U/L (39-308) Creatine Kinase MB (Mass) 2.1 ng/mL (0.0-3.6) Creatine Kinase MB Relative Index 1.2 % (0-4) Troponin I Quantitative < 0.017 ng/mL (0.000-0.055) IZ-Zlo-Y-Type Natriuretic Peptide > 16646 pg/mL (0-124) Total Protein 7.9 g/dL (6.4-8.2) Albumin 3.0 g/dL (3.4-5.0) Albumin/Globulin Ratio 0.6 (1.0-1.7) O2 Saturation 99 % (92-99) Arterial Blood pH 7.36 (7.35-7.45) Arterial Blood pCO2 at Patient Temp 36 mmHg (35-46) Arterial Blood pO2 at Patient Temp 254 mmHg (85-108) Arterial Blood HCO3 20 mmol/L (21-28) Arterial Blood Base Excess -5 mmol/L (-3-3) Oxyhemoglobin 91.1 % Methemoglobin 6.7 % (0.0-1.9) Carbon Monoxide, Quantitative 1.3 % (0.0-1.9) FiO2 50 Assessment Assessment Problems Medical Problems: (1) Acute respiratory failure with hypoxia Status: Acute (2) End-stage renal disease needing dialysis Status: Acute (3) Shortness of breath Status: Acute (4) Volume overload state of heart Status: Acute Plan Plan of Care Problems Medical Problems: (1) Acute respiratory failure with hypoxia Status: Acute (2) End-stage renal disease needing dialysis Status: Acute (3) Shortness of breath Status: Acute (4) Volume overload state of heart Status: Acute PILY HARVEY MD Aug 16, 2019 09:06
[2019-08-16] MEDS: CITALOPRAM 20 MG TABLET. PO SCH (12:29)
[2019-08-16] MEDS: DAPSONE 100 MG TABLET PO SCH (12:29)
[2019-08-16] MEDS: amLODIPine BESYLATE 5 MG TABLET PO SCH (12:29)
[2019-08-16] MEDS: DOLUTEGRAVIR SODIUM 50 MG PO SCH (12:31)
[2019-08-16] MEDS ORDERED: AMLO5TAB10 PO (13:12)
[2019-08-16] MEDS ORDERED: amLODIPine BESYLATE 5 MG TABLET PO ONE (13:15)
--- NOTE | 2019-08-16 13:20 | PDOC ---
PROGRESS NOTES Chief Complaint Chief Complaint A/P: Acute hypoxic respiratory failure - initially requiring bipap, likely multifactorial with asthma and fluid overload with flash pulmonary edema. Nebs and urgent dialysis x2 improved Hypertensive emergency - with flash pulm edema. NTG helping, restart home amlodipine. Prn labetalol IV ESRD on HD - he is quite overdue for dialysis, needs emergent therapy. Nephrology consulted Anxiety with Depression - cont meds GERD - PPI HIV - compliant with meds. Unclear why he is on bactrim and azithromycin, will continue if nephrology is ok with bactrim Hypertension - may need med adjustment after a few dialysis sessions Asthma - will cont inhalers History of Present Illness History of Present Illness Mr. Bernardo is a 39-year-old M from the [facility] w/ PMHx Anxiety, Asthma, Depression, GERD, HIV, Hypertension, End Stage Renal Disease, gynecomastia who p/w shortness of breath which started this AM at 0400. Patient reports his breathing became so difficulty that he ended up coming by EMS. Denies fever/chills. Denies trauma. EMS reported patient's O2 sat upon arrival was down to 90% on room air. Patient was placed on CPAP at 10 L which increased his O2 sat to 98%. Patient also received 1 inch of Nitropaste prior to arrival due to elevated BP. He feels his asthma may be acting up due to the fact that his mom had cats in her house. He was on dialysis in the past and then his creatinine improved. He was able to stay off of dialysis for almost 5 years. About a year ago he had to restart dialysis after he had a pneumonia. He is known to have a history of HIV. He dialyzes at the [facility] in [facility]. He last went to HD on Saturday and had appointment this AM at 0545. Was supposed to have dialysis today at [facility], which was arranged by his pillowcase maker. He thinks that has brought on his shortness of breath. CXR significant for fluid overload and notably his weight is approximately 6-7 kg above his estimated dry weight.He has had no recent sick contacts and tells me his most recent HIV viral load was undetectable and his CD4 count was greater than 400. He is, however, taking bactrim and azithromycin, notes he does not really know why, but he has been compliant with these and his anti-retrovirals. He notes his blood pressure has been elevated for months and that he has been losing weight so feels it is difficult to figure out his dry weight. BP 181/121.. Labs reveal BUN 67, Cr 15.7, Hb 8.4. His EKG showed sinus tachycardia. He was noted to be hypoxemic hypertensive and required BiPAP for maintaining his oxygenation. Emergent dialysis has been arranged for by nephrology, Dr. Jones. After 2 sessions of dialysis and increase to 10mg amlodipine his BP improved. much less short of breath. Pain improved. Nephrology recommends additional session to consider, however, he wishes to return to [place] for planned dialysis this coming Saturday. 5 minute walk off O2 performed Vitals Vitals Vital Signs Date Time Temp Pulse Resp B/P (MAP) Pulse Ox O2 Delivery O2 Flow Rate FiO2 08/16/19 12:29 89 156/103 08/16/19 08:00 Nasal Cannula 2.0 08/16/19 07:00 97.8 21 90 97.8 Physical Exam General: Alert, Oriented X3, Cooperative, mild distress Abdomen: Normal bowel sounds, Soft, No tenderness, No hepatosplenomegaly, No masses Extremities: No clubbing, No cyanosis, No edema, Normal pulses, No tenderness/swelling Skin: No rashes, No breakdown, No significant lesion Assessment and Plan Assessmemt and Plan Problems Medical Problems: (1) Acute respiratory failure with hypoxia Status: Acute (2) End-stage renal disease needing dialysis Status: Acute (3) Shortness of breath Status: Acute (4) Volume overload state of heart Status: Acute Comment Review of Relevant I have reviewed the following items santy (where applicable) has been applied. Labs Laboratory Tests Test 08/15/19 06:18 08/15/19 06:20 White Blood Count 11.0 x10^3/uL (4.0-11.0) Red Blood Count 2.81 x10^6/uL (4.30-5.70) Hemoglobin 8.4 g/dL (13.0-17.5) Hematocrit 25.8 % (39.0-53.0) Mean Corpuscular Volume 92 fL (79-100) Mean Corpuscular Hemoglobin 30 pg (25-35) Mean Corpuscular Hemoglobin Concent 33 g/dL (31-37) Red Cell Distribution Width 20.3 % (11.5-14.5) Platelet Count 338 x10^3/uL (140-400) Neutrophils (%) (Auto) 71 % (31-73) Lymphocytes (%) (Auto) 14 % (24-48) Monocytes (%) (Auto) 7 % (0-9) Eosinophils (%) (Auto) 8 % (0-3) Basophils (%) (Auto) 1 % (0-3) Neutrophils # (Auto) 7.8 x10^3/uL (1.8-7.7) Lymphocytes # (Auto) 1.5 x10^3/uL (1.0-4.8) Monocytes # (Auto) 0.8 x10^3/uL (0.0-1.1) Eosinophils # (Auto) 0.8 x10^3/uL (0.0-0.7) Basophils # (Auto) 0.1 x10^3/uL (0.0-0.2) Platelet Estimate Adequate (ADEQUATE) Anisocytosis Present Sodium Level 140 mmol/L (136-145) Potassium Level 4.7 mmol/L (3.5-5.1) Chloride Level 103 mmol/L (98-107) Carbon Dioxide Level 21 mmol/L (21-32) Anion Gap 16 (6-14) Blood Urea Nitrogen 67 mg/dL (8-26) Creatinine 15.7 mg/dL (0.7-1.3) Estimated GFR (Cockcroft-Gault) 4.2 BUN/Creatinine Ratio 4 (6-20) Glucose Level 90 mg/dL (70-99) Calcium Level 7.8 mg/dL (8.5-10.1) Magnesium Level 2.2 mg/dL (1.8-2.4) Total Bilirubin 0.4 mg/dL (0.2-1.0) Aspartate Amino Transf (AST/SGOT) 21 U/L (15-37) Alanine Aminotransferase (ALT/SGPT) 14 U/L (16-63) Alkaline Phosphatase 70 U/L (46-116) Creatine Kinase 177 U/L (39-308) Creatine Kinase MB (Mass) 2.1 ng/mL (0.0-3.6) Creatine Kinase MB Relative Index 1.2 % (0-4) Troponin I Quantitative < 0.017 ng/mL (0.000-0.055) AS-[id number]-[id number]-Type Natriuretic Peptide > 41143 pg/mL (0-124) Total Protein 7.9 g/dL (6.4-8.2) Albumin 3.0 g/dL (3.4-5.0) Albumin/Globulin Ratio 0.6 (1.0-1.7) O2 Saturation 99 % (92-99) Arterial Blood pH 7.36 (7.35-7.45) Arterial Blood pCO2 at Patient Temp 36 mmHg (35-46) Arterial Blood pO2 at Patient Temp 254 mmHg (85-108) Arterial Blood HCO3 20 mmol/L (21-28) Arterial Blood Base Excess -5 mmol/L (-3-3) Oxyhemoglobin 91.1 % Methemoglobin 6.7 % (0.0-1.9) Carbon Monoxide, Quantitative 1.3 % (0.0-1.9) FiO2 50 Medications Current Medications Methylprednisolone Sodium Succinate (SOLU-Medrol 125MG VIAL) 125 mg 1X ONCE IV Last administered on 08/15/19at 08:03; Start 08/15/19 at 07:45; Stop 08/15/19 at 07:51; Status DC Albuterol Sulfate (Ventolin Neb Soln) 10 mg 1X ONCE CONT NEB Last administered on 08/15/19at 08:23; Start 08/15/19 at 07:45; Stop 08/15/19 at 07:51; Status DC Ipratropium Lamar (Atrovent) 1 mg 1X ONCE NEB Last administered on 08/15/19at 08:23; Start 08/15/19 at 07:45; Stop 08/15/19 at 07:51; Status DC Sodium Chloride 1,000 ml @ 1,000 mls/hr Q1H PRN IV hypotension; Start 08/15/19 at 10:07; Stop 08/15/19 at 16:06; Status DC Albumin Human 200 ml @ 200 mls/hr 1X PRN PRN IV Hypotension; Start 08/15/19 at 10:15; Stop 08/15/19 at 16:14; Status DC Acetaminophen (Tylenol) 500 mg 1X PRN PRN PO MILD PAIN / TEMP; Start 08/15/19 at 10:15; Stop 08/16/19 at 10:14; Status DC Diphenhydramine HCl (Benadryl) 25 mg 1X PRN PRN IV ITCHING; Start 08/15/19 at 10:15; Stop 08/16/19 at 10:14; Status DC Diphenhydramine HCl (Benadryl) 25 mg 1X PRN PRN IV ITCHING; Start 08/15/19 at 10:15; Stop 08/16/19 at 10:14; Status DC Sodium Chloride 1,000 ml @ 400 mls/hr Q2H30M PRN IV PATENCY; Start 08/15/19 at 10:07; Stop 08/15/19 at 22:06; Status DC Info (PHARMACY MONITORING -- do not chart) 1 each PRN DAILY PRN MC SEE COMMENTS; Start 08/15/19 at 10:15 Amlodipine Besylate (Norvasc) 5 mg DAILY PO Last administered on 08/16/19at 12:29; Start 08/15/19 at 13:00 Dapsone (Aczone) 100 mg DAILY PO Last administered on 08/16/19at 12:29; Start 08/15/19 at 13:00 Trazodone HCl (Desyrel) 100 mg HS PO Last administered on 08/15/19at 20:26; Start 08/15/19 at 21:00 Azithromycin (Zithromax) 500 mg WEEKLY PO ; Start 08/17/19 at 09:00 Non-Formulary Medication (Darunavir/ Cobicistat (Prezcobix 800 mg-150 mg Tablet)) 1 tab DAILY PO Last administered on 08/16/19at 12:30; Start 08/15/19 at 14:30 Non-Formulary Medication (Dolutegravir Sodium (Tivicay)) 1 tab DAILY PO Last administered on 08/16/19at 12:31; Start 08/15/19 at 14:30 Citalopram Hydrobromide (CeleXA) 20 mg DAILY PO Last administered on 08/16/19at 12:29; Start 08/15/19 at 13:00 Hydroxyzine HCl (Atarax) 25 mg PRN Q6HRS PRN PO ITCHING; Start 08/15/19 at 12:15 Azithromycin (Zithromax) 500 mg WEEKLY PO ; Start 08/20/19 at 09:00 Labetalol HCl (Normodyne Iv Push) 20 mg PRN Q2HR PRN IVP HYPERTENSION Last a dministered on 08/15/19at 15:10; Start 08/15/19 at 14:45 Sodium Chloride 1,000 ml @ 1,000 mls/hr Q1H PRN IV hypotension; Start 08/16/19 at 08:26; Stop 08/16/19 at 14:25 Acetaminophen (Tylenol) 500 mg 1X PRN PRN PO MILD PAIN / TEMP; Start 08/16/19 at 08:30; Stop 08/17/19 at 08:29 Diphenhydramine HCl (Benadryl) 25 mg 1X PRN PRN IV ITCHING; Start 08/16/19 at 08:30; Stop 08/17/19 at 08:29 Diphenhydramine HCl (Benadryl) 25 mg 1X PRN PRN IV ITCHING; Start 08/16/19 at 08:30; Stop 08/17/19 at 08:29 Sodium Chloride 1,000 ml @ 400 mls/hr Q2H30M PRN IV PATENCY; Start 08/16/19 at 08:26; Stop 08/16/19 at 20:25 Info (PHARMACY MONITORING -- do not chart) 1 each PRN DAILY PRN MC SEE COMMENTS; Start 08/16/19 at 08:30 Amlodipine Besylate (Norvasc) 5 mg 1X ONCE PO ; Start 08/16/19 at 13:15; Stop 08/16/19 at 13:16; Status UNV Active Scripts Active Amlodipine Besylate 5 Mg Tablet 10 Mg PO DAILY 30 Days Reported Escitalopram Oxalate 10 Mg Tablet 10 Mg PO DAILY Dapsone 100 Mg Tablet 100 Mg PO DAILY Zithromax (Azithromycin) 500 Mg Tablet 600 Mg PO BID Hydroxyzine Pamoate 25 Mg Capsule 25 Mg PO Q6HRS PRN Lasix (Furosemide) 40 Mg Tablet 40 Mg PO BID Trazodone Hcl 100 Mg Tablet 100 Mg PO HS Tivicay (Dolutegravir Sodium) 50 Mg Tablet 1 Tab PO DAILY 30 Days Prezcobix 800 mg-150 mg Tablet (Darunavir/Cobicistat) 1 Each Tablet 1 Tab PO DAILY 30 Days Ranitidine Hcl 150 Mg Tablet 150 Mg PO Bactrim Ds Tablet (Sulfamethoxazole/Trimethoprim) 1 Each Tablet 1 Each PO Vitals/I & O Vital Sign - Last 24 Hours 08/15/19 08/15/19 08/15/19 08/15/19 14:03 14:52 15:10 19:30 Temp 97.9 98.0 97.9 98.0 Pulse 94 95 95 94 Resp 18 21 B/P (MAP) 165/109 190/115 (140) 190/115 157/100 (119) Pulse Ox 95 91 O2 Delivery Nasal Cannula Room Air O2 Flow Rate 2.0 08/15/19 08/15/19 08/16/19 08/16/19 20:00 23:34 03:40 07:00 Temp 98.4 98.1 97.8 98.4 98.1 97.8 Pulse 96 82 92 Resp 20 21 21 B/P (MAP) 150/97 (114) 148/100 (116) 143/89 (107) Pulse Ox 91 90 90 O2 Delivery Nasal Cannula Room Air Room Air Nasal Cannula O2 Flow Rate 2.0 2.0 08/16/19 08/16/19 08:00 12:29 Pulse 89 B/P (MAP) 156/103 O2 Delivery Nasal Cannula O2 Flow Rate 2.0 Intake and Output 08/15/19 08/15/19 08/16/19 14:59 22:59 06:59 Intake Total 550 ml Balance 550 ml ABRAHAM STOVER MD Aug 16, 2019 13:20
--- NOTE | 2019-08-16 13:21 | PDOC3 ---
Discharge Summary Visit Information Date of Admission: Aug 15, 2019 Date of Discharge: Aug 16, 2019 Admitting Diagnosis: HTN emergency Final Diagnosis Problems Medical Problems: (1) Acute respiratory failure with hypoxia Status: Acute (2) End-stage renal disease needing dialysis Status: Acute (3) Shortness of breath Status: Acute (4) Volume overload state of heart Status: Acute Brief Hospital Course Allergies Allergies Coded Allergies Type Severity Reaction Last Updated Verified No Known Drug Allergies 09/29/13 No Vital Signs Vital Signs Date Time Temp Pulse Resp B/P (MAP) Pulse Ox O2 Delivery O2 Flow Rate FiO2 08/16/19 12:29 89 156/103 08/16/19 08:00 Nasal Cannula 2.0 08/16/19 07:00 97.8 21 90 97.8 Lab Results Laboratory Tests Test 08/15/19 06:18 08/15/19 06:20 White Blood Count 11.0 x10^3/uL (4.0-11.0) Red Blood Count 2.81 x10^6/uL (4.30-5.70) Hemoglobin 8.4 g/dL (13.0-17.5) Hematocrit 25.8 % (39.0-53.0) Mean Corpuscular Volume 92 fL (79-100) Mean Corpuscular Hemoglobin 30 pg (25-35) Mean Corpuscular Hemoglobin Concent 33 g/dL (31-37) Red Cell Distribution Width 20.3 % (11.5-14.5) Platelet Count 338 x10^3/uL (140-400) Neutrophils (%) (Auto) 71 % (31-73) Lymphocytes (%) (Auto) 14 % (24-48) Monocytes (%) (Auto) 7 % (0-9) Eosinophils (%) (Auto) 8 % (0-3) Basophils (%) (Auto) 1 % (0-3) Neutrophils # (Auto) 7.8 x10^3/uL (1.8-7.7) Lymphocytes # (Auto) 1.5 x10^3/uL (1.0-4.8) Monocytes # (Auto) 0.8 x10^3/uL (0.0-1.1) Eosinophils # (Auto) 0.8 x10^3/uL (0.0-0.7) Basophils # (Auto) 0.1 x10^3/uL (0.0-0.2) Platelet Estimate Adequate (ADEQUATE) Anisocytosis Present Sodium Level 140 mmol/L (136-145) Potassium Level 4.7 mmol/L (3.5-5.1) Chloride Level 103 mmol/L (98-107) Carbon Dioxide Level 21 mmol/L (21-32) Anion Gap 16 (6-14) Blood Urea Nitrogen 67 mg/dL (8-26) Creatinine 15.7 mg/dL (0.7-1.3) Estimated GFR (Cockcroft-Gault) 4.2 BUN/Creatinine Ratio 4 (6-20) Glucose Level 90 mg/dL (70-99) Calcium Level 7.8 mg/dL (8.5-10.1) Magnesium Level 2.2 mg/dL (1.8-2.4) Total Bilirubin 0.4 mg/dL (0.2-1.0) Aspartate Amino Transf (AST/SGOT) 21 U/L (15-37) Alanine Aminotransferase (ALT/SGPT) 14 U/L (16-63) Alkaline Phosphatase 70 U/L (46-116) Creatine Kinase 177 U/L (39-308) Creatine Kinase MB (Mass) 2.1 ng/mL (0.0-3.6) Creatine Kinase MB Relative Index 1.2 % (0-4) Troponin I Quantitative < 0.017 ng/mL (0.000-0.055) [id number]-Type Natriuretic Peptide > 80478 pg/mL (0-124) Total Protein 7.9 g/dL (6.4-8.2) Albumin 3.0 g/dL (3.4-5.0) Albumin/Globulin Ratio 0.6 (1.0-1.7) O2 Saturation 99 % (92-99) Arterial Blood pH 7.36 (7.35-7.45) Arterial Blood pCO2 at Patient Temp 36 mmHg (35-46) Arterial Blood pO2 at Patient Temp 254 mmHg (85-108) Arterial Blood HCO3 20 mmol/L (21-28) Arterial Blood Base Excess -5 mmol/L (-3-3) Oxyhemoglobin 91.1 % Methemoglobin 6.7 % (0.0-1.9) Carbon Monoxide, Quantitative 1.3 % (0.0-1.9) FiO2 50 Brief Hospital Course Mr. Bernardo is a 39-year-old M from the [facility] w/ PMHx Anxiety, Asthma, Depression, GERD, HIV, Hypertension, End Stage Renal Disease, gynecomastia who p/w shortness of breath which started this AM at 0400. Patient reports his breathing became so difficulty that he ended up coming by EMS. Denies fever/chills. Denies trauma. EMS reported patient's O2 sat upon arrival was down to 90% on room air. Patient was placed on CPAP at 10 L which increased his O2 sat to 98%. Patient also received 1 inch of Nitropaste prior to arrival due to elevated BP. He feels his asthma may be acting up due to the fact that his mom had cats in her house. He was on dialysis in the past and then his creatinine improved. He was able to stay off of dialysis for almost 5 years. About a year ago he had to restart dialysis after he had a pneumonia. He is known to have a history of HIV. He dialyzes at the [facility] in [facility]. He last went to HD on Saturday and had appointment this AM at 0545. Was supposed to have dialysis today at [facility], which was arranged by his skilled nursing case manager. He thinks that has brought on his shortness of breath. CXR significant for fluid overload and notably his weight is approximately 6-7 kg above his estimated dry weight.He has had no recent sick contacts and tells me his most recent HIV viral load was undetectable and his CD4 count was greater than 400. He is, however, taking bactrim and azithromycin, notes he does not really know why, but he has been compliant with these and his anti-retrovirals. He notes his blood pressure has been elevated for months and that he has been losing weight so feels it is difficult to figure out his dry weight. BP 181/121.. Labs reveal BUN 67, Cr 15.7, Hb 8.4. His EKG showed sinus tachycardia. He was noted to be hypoxemic hypertensive and required BiPAP for maintaining his oxygenation. Emergent dialysis has been arranged for by nephrology, Dr. Jones. After 2 sessions of dialysis and increase to 10mg amlodipine his BP improved. much less short of breath. Pain improved. Nephrology recommends additional session to consider, however, he wishes to return to [place] for planned dialysis this coming Saturday. 5 minute walk off O2 performed A/P: Acute hypoxic respiratory failure - initially requiring bipap, likely multifactorial with asthma and fluid overload with flash pulmonary edema. Nebs and urgent dialysis x2 improved Hypertensive emergency - with flash pulm edema. NTG helping, restart home amlodipine. Prn labetalol IV ESRD on HD - he is quite overdue for dialysis, needs emergent therapy. Nephrology consulted Anxiety with Depression - cont meds GERD - PPI HIV - compliant with meds. Unclear why he is on bactrim and azithromycin, will continue if nephrology is ok with bactrim Hypertension - may need med adjustment after a few dialysis sessions Asthma - will cont inhalers Greater than 30 minutes spent on d/c Discharge Information Condition at Discharge: Improved Follow Up: Weeks (1) Disposition/Orders: D/C to Home Scheduled Amlodipine Besylate (Amlodipine Besylate) 5 Mg Tablet, 10 MG PO DAILY for HTN for 30 Days, #60 Ref 2 Prescribed by: ABRAHAM STOVER MD on 08/16/19 1312 Azithromycin (Zithromax) 500 Mg Tablet, 600 MG PO BID for ANTI-BIOTIC, Ref 0 (Reported) Entered as Reported by: TAMI WEBB RN on 08/15/19948 Last Action: Converted on 08/15/191158 by TAMI WEBB RN Dapsone (Dapsone) 100 Mg Tablet, 100 MG PO DAILY for HIV, (Reported) Entered as Reported by: ATMI WEBB RN on 08/15/19948 Last Action: Continued on 08/15/191158 by TAMI WEBB RN Darunavir/Cobicistat (Prezcobix 800 mg-150 mg Tablet) 1 Each Tablet, 1 TAB PO DAILY for HIV for 30 Days, #30 Ref 0 (Reported) Entered as Reported by: TAMI WEBB RN on 08/15/19941 Last Action: Converted on 08/15/191158 by TAMI WEBB RN Dolutegravir Sodium (Tivicay) 50 Mg Tablet, 1 TAB PO DAILY for HIV for 30 Days, #30 Ref 0 (Reported) Entered as Reported by: TAMI WEBB RN on 08/15/19941 Last Action: Converted on 08/15/191158 by TAMI WEBB RN Escitalopram Oxalate (Escitalopram Oxalate) 10 Mg Tablet, 10 MG PO DAILY for ANTI-DEPRESSANT, #30 Ref 0 (Reported) Entered as Reported by: TAMI WEBB RN on 08/15/19948 Last Action: Converted on 08/15/191158 by TAMI WEBB RN Furosemide (Lasix) 40 Mg Tablet, 40 MG PO BID for HTN, (Reported) Entered as Reported by: TAMI WEBB RN on 08/15/19948 Last Action: Reviewed on 08/15/19949 by TAMI WEBB RN Trazodone Hcl (Trazodone Hcl) 100 Mg Tablet, 100 MG PO HS for Insomnia, (Reported) Entered as Reported by: TAMI WEBB RN on 08/15/19948 Last Action: Continued on 08/15/191158 by TAMI WEBB RN Scheduled PRN Hydroxyzine Pamoate (Hydroxyzine Pamoate) 25 Mg Capsule, 25 MG PO Q6HRS PRN for ANXIETY / AGITATION, (Reported) Entered as Reported by: TAMI WEBB RN on 08/15/19948 Last Action: Converted on 08/15/191158 by TAMI WEBB RN Miscellaneous Medications Ranitidine Hcl (Ranitidine Hcl) 150 Mg Tablet, 150 MG PO, (Reported) Entered as Reported by: AMRITA CAMACHO on 09/29/13617 Last Action: Reviewed on 08/15/19941 by TAMI WEBB RN Sulfamethoxazole/Trimethoprim (Bactrim Ds Tablet) 1 Each Tablet, 1 EACH PO, (Reported) Entered as Reported by: AMRITA CAMACHO on 09/29/13617 Last Action: Reviewed on 08/15/19941 by TAMI WEBB RN Discontinued Medications Hydroxyzine Pamoate (Hydroxyzine Pamoate) 50 Mg Capsule, 25 MG PO Q6HRS for Anxiety, (Reported) Entered as Reported by: TAMI WEBB RN on 08/15/19948 Last Action: Discontinued on 08/15/191139 by TAMI WEBB RN Lamivudine (Epivir) 10 Mg/1 Ml Solution, 10 MG PO, (Reported) Entered as Reported by: AMRITA CAMACHO on 09/29/13617 Last Action: Discontinued on 08/15/19941 by TAMI WEBB RN Raltegravir Potassium (Isentress) 400 Mg Tablet, 400 MG PO, (Reported) Entered as Reported by: AMRITA JANICE on 09/29/13617 Last Action: Discontinued on 08/15/19941 by TAMI WEBB RN Zidovudine (Zidovudine) 100 Mg Capsule, 100 MG PO, (Reported) Entered as Reported by: AMRITA CAMACHO on 09/29/13617 Last Action: Discontinued on 08/15/19941 by MARY ELLEN DRISCOLL CHRISTOPHER S MD Aug 16, 2019 13:21
[2019-08-16 13:33] VITALS: BP 156/103
--- NOTE | 2019-08-16 15:34 | NUR ---
Discharge Note: [facility] Discharge instructions and discharge home medications reviewed with Patient and a copy given. All questions have been answered and understanding verbalized. The following instructions and handouts were given: amlodipine Patient discharged to home with spouse via ambulated
[2019-08-17] MEDS ORDERED: AZITHROMYCIN 250 MG TABLET. PO SCH (09:00)
[2019-08-20] MEDS ORDERED: AZITHROMYCIN 250 MG TABLET. PO SCH (09:00)
== END 2019-08-16 15:43 | disposition home or self-care (01) | DRG 189 ==
LOC: ER 05:58 → 2 SOUTH 08:25
PROVIDERS: ADMIT Internal Medicine; ATTEND Internal Medicine
PROC: 5A09357 Assistance with Respiratory Ventilation, Less than 24 Consecutive Hours, Continuous Positive Airway Pressure (ICD-10-PCS; principal; 2019-08-15)
PROC: 5A1D70Z Performance of Urinary Filtration, Intermittent, Less than 6 Hours Per Day (ICD-10-PCS; 2019-08-15)
PROC: 5A1D70Z Performance of Urinary Filtration, Intermittent, Less than 6 Hours Per Day (ICD-10-PCS; 2019-08-16)
DX: J96.01 Acute respiratory failure with hypoxia (principal); N18.6 End stage renal disease; I16.1 Hypertensive emergency; J81.1 Chronic pulmonary edema; I12.0 Hypertensive chronic kidney disease with stage 5 chronic kidney disease or end stage renal disease; E87.70 Fluid overload, unspecified; F17.210 Nicotine dependence, cigarettes, uncomplicated; F41.8 Other specified anxiety disorders; J45.909 Unspecified asthma, uncomplicated; K21.9 Gastro-esophageal reflux disease without esophagitis; Z82.49 Family history of ischemic heart disease and other diseases of the circulatory system; Z99.2 Dependence on renal dialysis; F32.9 Major depressive disorder, single episode, unspecified; F41.9 Anxiety disorder, unspecified
CPT/HCPCS: 36415; 36600; 71045; 80053; 82553; 82805; 83735; 83880; 84484; 85025; 93005; 94618; 94640; 94644; 94660; 96374; J2930; J3490; J7613; J7644; 99285-25; G0378